=== PATIENT | male | born 1985 | race Caucasian/White ===

== ENCOUNTER 2019-12-11 12:44 | Outpatient (CLI) | payer OTHER, SELFPAY ==
--- NOTE | 2019-12-14 15:27 | WPDPFTINT ---
PFT Interpretation PFT Interpretation: DOS: 12/11/2019 REQUESTING: Dr Hernandez REASON FOR TESTING: Shortness of breath PULMONARY FUNCTION TESTS The results are reproducible and reliable. Spirometry: FEV1 is 83% predicted, 3.94 L, normal. FVC is 86%, normal. FEV1% is 72%, low end of normal for his age. The JPB44-20% is 59%, reduced. There is no significant change with bronchodilator. Lung volumes: Total lung capacity is 78%, mild restriction. No air trapping. Airway resistance is 140%, mildly elevated. Diffusion: DLCO is 89%, normal. Flow volume loop: Mild scooping of the expiratory limb. IMPRESSION: Mild restrictive pattern with decreased total lung capacity, as well as suspected small airways disease with decreased [id number]%, borderline low FEV1%, increased airway resistance. Lack of response to bronchodilator should not preclude use if clinically indicated. Clinical correlation is advised. Cheryl Hernandez MD
== END 2019-12-11 12:45 | disposition home or self-care (01) ==
LOC: ANHPFT 12:47
PROVIDERS: Visit Provider Internal Medicine Critical Care Medicine
DX: J84.9 Interstitial pulmonary disease, unspecified (principal); R94.2 Abnormal results of pulmonary function studies
CPT/HCPCS: 94060; 94726; 94729

== ENCOUNTER 2021-12-23 14:30 | Outpatient (CLI) | payer OTHER, SELFPAY ==
--- NOTE | 2021-12-23 16:53 | WPDPFTINT ---
PFT Procedure Performed PFT Procedure Performed Spirometry with Pre/Post Bronchodilator Plethysmography (Lung Vol) Diffusing Cap (DLCO) Flow Vol Loop PFT Interpretation This is a pulmonary function test with pre and post-bronchodilator spirometry, plethysmography and diffusing capacity. The test was performed and results interpreted in accordance with the 2019 and 2005 ATS/ERS Task Force guidelines respectively using the Global Lung Function Initiative-2012 reference equations. Patient demonstrated good effort and cooperation. Reproducibility criteria were met. The quality of the pre bronchodilator spirometry maneuver was Grade A and post bronchodilator spirometry maneuver was Grade A. Findings: Spirometry: There is decreased maximal expiratory airflow at all lung volumes with a mildly concave expiratory flow tracing. The pre bronchodilator FVC is 5.47 L, 80% predicted. The pre bronchodilator FEV1 is 3.78 L, 70% predicted. The pre bronchodilator FEV1: FVC ratio 69%. The post bronchodilator FVC is 5.55 L, representing 1% increase. The post bronchodilator FEV1 is 4.14 L, representing a 9% increase. The post bronchodilator FEV1: FVC ratio 75%. Plethysmography: The total lung capacity is 7.16 L, 84% predicted. The functional residual capacity is 2.98 L, 68% predicted. The residual volume is 1.66 L, 74% predicted. Diffusing capacity: The diffusing capacity unadjusted for hemoglobin and carboxyhemoglobin is 30.6, 83% predicted. The diffusing capacity corrects adjusted for alveolar volume is 4.71, 105% predicted. In comparison to previous pulmonary function test on 12/11/2019 the post bronchodilator FVC is unchanged from 5.46 L to 5.55 L. The post bronchodilator FEV1 is unchanged from 4.05 L to 4.14 L. The total lung capacity is unchanged from 6.95 L to 7.16 L. The functional residual capacity is unchanged from 3.17 L to 2.98 L. The residual volume is 2 he has is increased from 1.38 L to 1.66 L. The diffusion capacity unadjusted for hemoglobin and carboxyhemoglobin is unchanged from 31.8 to 30.6. The diffusing capacity adjusted for alveolar volume is unchanged from 4.83 to 4.71. Impression: There is a mild obstructive abnormality without significant improvement after inhaling a single dose of albuterol. The lung volumes are normal. The diffusing capacity is normal. In comparison to the previous test on 12/11/2019 there has been a greater than anticipated time dependent increase in residual volume with no change in the FVC, FEV1, total lung capacity, functional residual capacity and diffusing capacity. Clinical correlation is recommended. There are no prior studies for comparison
== END 2021-12-23 14:31 | disposition home or self-care (01) ==
LOC: ANHPFT 14:32
PROVIDERS: Visit Provider Nurse Practitioner Family
DX: J84.9 Interstitial pulmonary disease, unspecified (principal); G47.30 Sleep apnea, unspecified
CPT/HCPCS: 94060; 94726; 94729